=== PATIENT | male | born 1930 | race Caucasian/White ===

== ENCOUNTER 2021-10-29 10:32 | Emergency (ER) | payer OTHER ==
[~2021-10-29] VITALS: Ht 160 cm; Wt 61.2 kg
[2021-10-29 10:37] VITALS: BP 176/109
--- NOTE | 2021-10-29 10:37 | NUR ---
ELIO OVALLE VIA GURNEY TO BED 03.
--- NOTE | 2021-10-29 11:15 | NUR ---
# 18 FR Herrmann catheter with 10 ml utilizing sterile technique. Immediate return of 1200 ml yellow urine noted. Bedside drainage bag placed below level of bladder. Urine sample collected and sent to lab. Pt tolerated procedure well.
--- NOTE | 2021-10-29 11:23 | NUR ---
89 y/o male biba from [facility] for catheter replacement. Per facility catheter was not draining enough urine. Facility is requesting a catheter replacement. Medical History: Pancreatic CA, Hypoxia, UTI, Pulmonary Nodule, Hypernatremia, Enlarged Prostate, HLD, Irritable Bowel, HTN NKDA
[2021-10-29] MEDS ORDERED: CEPH-588 PO (11:51)
--- NOTE | 2021-10-29 11:53 | NUR ---
Spoke to Leonor from Hospice. She will set up transportation for patient since he is discharged. She will call back for details of transportation.
--- NOTE | 2021-10-29 12:53 | NUR ---
Spoke to Mally at Hospice. Patient's will be picked up from 2:30-3:30PM for transportation back to facility.
--- NOTE | 2021-10-29 14:50 | NUR ---
Patient is laying in bed, alert and verbally responsive. All needs met by staff. Respirations even and unlabored.
[2021-10-29 16:13] VITALS: BP 153/80
--- NOTE | 2021-10-29 16:13 | NUR ---
Patient discharged with v/s stable. Written and verbal after care instructions given. Patient alert, oriented and verbalized understanding of instructions. Wheel Chair Assisted with by caregiver. All questions addressed prior to discharge. ID band removed. Patient advised to follow up with PMD. Rx of keflex given. Opportunity to ask questions provided and answered.
--- NOTE | 2021-10-29 16:14 | NUR ---
Chart checked and completed. The patient's care was reviewed and supervised by Neeru Jarvis RN.
== END 2021-10-29 16:13 | disposition home or self-care (01) ==
LOC: MED 10:32
DX: N39.0 Urinary tract infection, site not specified (principal); T83.2 Mechanical complication of graft of urinary organ
CPT/HCPCS: 51702; 81002; 99284